=== PATIENT | female | born 1960 | race Caucasian/White ===

== ENCOUNTER 2021-05-16 16:18 | Emergency (ER) | payer OTHER ==
[~2021-05-16] VITALS: Ht 170.2 cm; Wt 86.2 kg
[2021-05-16] MEDS ORDERED: SIMVASTATIN20 MG PO (17:55)
[2021-05-16] MEDS ORDERED: CLOPIDOGREL75 MG PO (17:55)
[2021-05-16] MEDS ORDERED: VENTOLIN HFA18 GM INH (17:56)
[2021-05-16] MEDS ORDERED: HYDROCODON-ACE1 EA10 PO (17:57)
[2021-05-16] MEDS ORDERED: LISINOPRIL5 MG PO (17:57)
--- NOTE | 2021-05-17 07:50 | EKG ---
[facility] [address] [facility] [place], [place] [address] Signed Normal sinus rhythm Normal ECG No previous ECGs available Confirmed by DURAN CORLEY MD ([id number] on 05/17/2021 7:50:19 AM Electronically Signed By: DURAN CORLEY MD 05/17/21 0750 PATIENT NAME: KRISTINA IRVIN Electrocardiogram DATE OF : 58 PHYSICIAN: DURAN CORLEY MD REPORT #: [id number] REPORT IS CONFIDENTIAL AND NOT TO BE RELEASED WITHOUT AUTHORIZATION
--- NOTE | 2021-05-17 20:02 | EKG ---
[facility] [address] [place], [place] [address] Signed Normal sinus rhythm Low voltage QRS Borderline ECG When compared with ECG of 16-MAY-2021 16:45, (Unconfirmed) No significant change was found Confirmed by DURAN CORLEY MD ([id number] on 05/17/2021 8:02:20 PM Electronically Signed By: DURAN CORLEY MD 05/17/212001 PATIENT NAME: KRISTINA IRVIN Electrocardiogram DATE OF : 58 PHYSICIAN: DURAN CORLEY MD REPORT #: [id number] REPORT IS CONFIDENTIAL AND NOT TO BE RELEASED WITHOUT AUTHORIZATION
== END 2021-05-17 07:01 | disposition short-term general hospital (02) ==
LOC: ED 16:18
DX: U07.1 COVID-19 (principal); I21.4 Non-ST elevation (NSTEMI) myocardial infarction; E78.00 Pure hypercholesterolemia, unspecified; I10 Essential (primary) hypertension; Z79.899 Other long term (current) drug therapy
CPT/HCPCS: 70450; 71045; 80053; 81001; 83735; 84484; 85025; 85610; 85730; 93005; 93010; 96374; 96375; 99285-25; J1644; J2270; J2405; U0003